=== PATIENT | female | born 1950 | race Caucasian/White ===

== ENCOUNTER 2024-01-16 14:32 | Emergency (ER) | payer OTHER, SELFPAY ==
[2024-01-16 14:35] VITALS: BP 154/88
[2024-01-16] MEDS: SOLU-CORTEF 200 MG IV (16:21)
[2024-01-16] MEDS: BENADRYL 50 MG IV (16:21)
[2024-01-16 16:39] LABS: % Basophils 0.4 % (0-2); % Eosinophils 1.9 % (0-6); % Immature Granulocytes 0.3 % (0-0.5); % Lymphocytes 18.4 % (20.5-51.1); % Monocytes 7.5 % (1.7-9.3); % Neutrophils 71.5 % (42.2-75.2); Absolute Eosinophils 0.1 10^3/uL (0-0.7); Absolute Lymphocytes 1.4 10^3/uL (1.2-3.4); Absolute Monocytes 0.6 10^3/uL (0.1-0.6); Absolute Neutrophils 5.2 10^3/uL (1.4-6.5); Hematocrit 44.4 % (37.0-47.0); Hemoglobin 14.7 g/dL (12.0-16.0); Mean Corp Hgb Conc. 33.1 g/dL (33.0-37.0); Mean Corpuscular Hgb 29.8 pg (27.0-31.0); Mean Corpuscular Volume 89.9 fL (81.0-99.0); Nucleated Red Blood Cells % 0 %; Platelet Count 277 10^3/uL (130-400); Red Blood Cell Count 4.94 10^6/uL (4.20-5.40); Red Cell Dist. Width 14.4 % (11.5-14.5); White Blood Cell Count 7.3 10^3/uL (4.8-10.8)
[2024-01-16 16:56] LABS: ALT (SGPT) 46 U/L (0-35); AST (SGOT) 57 U/L (14-36); Albumin 4.3 g/dl (3.5-5.0); Alkaline Phosphatase 269 U/L (38-126); Blood Urea Nitrogen 16 mg/dl (7-17); Carbon Dioxide 36 mmol/L (22-30); Chloride 99 mmol/L (98-107); Glucose 101 mg/dl (70-99); Potassium 5.6 mmol/L (3.5-5.1); Sodium 143 mmol/L (135-145); Total Bilirubin 1.1 mg/dl (0.2-1.3); Total Protein 6.9 g/dl (6.3-8.2); eGFR > 60.00
--- NOTE | 2024-01-16 17:21 | ED.GENMED ---
History of Present Illness
General
Chief Complaint: Headache
Source: patient
Exam Limitations: none
Time Seen by Provider: 01/16/24 15:30
Nursing documentation reviewed up to this point in time: agreed with
History of Present Illness
History of Present Illness:
pt is a 73 y/o F with h/o COPD, GERD, HTN HKLD, migraines
has had intermittent dizziness/lightheadedness with headache for th epast few mo
much wrose the past month
she spends a lot of days in bed
she ended up seeing pcp --> ENT who didn't think she had vertigo; pt was having headache and nauesa so he prescriped sumatriptan which didn't really help for headaches; he wanted her to have MRI of head, which she didn't get yet; continued to have
sxs of nausea and had labs showing transamintiis so she sw GI --> who ordered US showing a 'spot' on her liver and then pt has CT of a/p showing this spot of her liver but without other findings, she had her lfts improve and is scheduled to have
outpatient biopsy
but in the meantime she has never ahd the MRI of her head
the past 4 days she has had headache that was very intense, not letting up and she had nausea and was lying in bed
she took aleve yesterday and ultimately today the headache is better but she still has mild bitemporal headache 4/10 as well as this episodic dizziness that feels like a wave come over her
she mostly does not have any trouble with balance and walks unassisted. It does seem like her dizziness gets worse with changing positions but is not a room spinning sensation. She has chronic vision problems because of cataract surgery and has
not noticed any changes to that. She has no scalp sensitivity or fatigue with chewing. She is not having any thunderclap headache
Past History
Past History
ED Past Medical History: Cancer (Cervical), COPD, HTN, Hypercholesterolemia, Other (PE) and Other (UTI)
Social History
Tobacco: Non-smoker
Review of Systems
Review of Systems
Allergies reviewed?: Yes
All Other Systems: Not applicable
Phy Exam
Physical Exam
Physical Exam:
GENERAL: Alert , in no apparent distress
HEAD: NCAT
EYE: pupils equal and reactive, no nystagmus, minimal photophobia
NECK: Supple,full rom, nontender
ENT: o/p clr, mmm.
CARDIAC: Regular rate and rhythm . no edema
LUNGS: Clear breath sounds bilaterally, no acute respiratory distress, no wheezes/rales/rhonchi
ABDOMEN: Soft, without focal tenderness, no r/g, no cvat
NEUROLOGICAL: Alert and orientedx 4, cn intact, no facial asymmetry, 5/5 strength in UE/LE, sensation intact, romberg neg, ambulates without assistance, neg pronator drift
SKIN: Warm and dry, skin intact.
MUSCULOSKELETAL: No edema, well perfused.
PSYCH: Normal and appropriate interaction.
Course
Orders/Labs/Results
Orders:
Orders
01/16/24 15:59
Electrocardiogram (*1) Stat
Reason for Study: Other
Other Reason for Exam: Headache
CT Head & Neck Angio W/wo IV Urgent
Comment:
Reason For Exam: dizziness and headache x 1 mo
EKG- Treatment ONCE
01/16/24 16:02
Diphenhydramine [Benadryl] 50 mg IV NOW STA
Hydrocortisone Sod Succinate [Solu-Cortef] 200 mg IV NOW STA
01/16/24 16:20
Complete Blood Count/With Diff Urgent
Comprehensive Metabolic Panel Urgent
Erythrocyte Sed Rate Urgent
Comment: ADD ON
01/16/24 16:50
Add On- LAB Urgent
Tests Added?: ESR
Abnormal Lab Results
01/16/24
16:20
Lymphocytes % 18.4 L %
(20.5-51.1)
Potassium 5.6 H mmol/L
(3.5-5.1)
Carbon Dioxide 36 H mmol/L
(22-30)
Creatinine 0.5 L mg/dL
(0.6-1.0)
Glucose 101 H mg/dl
(70-99)
AST 57 H U/L
(14-36)
ALT 46 H U/L
(0-35)
Alkaline Phosphatase 269 H U/L
(38-126)
01/16/24 16:20
01/16/24 16:20
Vital Signs
Initial and Last Documented VS:
Initial Vital Signs
Temp Pulse Resp BP Pulse Ox
98.2 F 68 16 154/88 98
01/16/24 14:35 01/16/24 14:35 01/16/24 14:35 01/16/24 14:35 01/16/24 14:35
Last Documented Vital Signs
Temp Pulse Resp BP Pulse Ox
97.7 F 69 22 145/70 94
01/16/24 18:48 01/16/24 18:48 01/16/24 18:48 01/16/24 18:48 01/16/24 18:48
MDM/Problems Addressed
Differential Diagnosis Includes:
dissection, cva, tumor, stroke, migraine, vertigo, depression
MDM/Problems Addressed:
73 y/o F
weeks of headaches, dizziness, felt as lightheadedness, comes and goes
waxing and waning symptoms
had some other issues being worked up --> LFTs elevated and what is concerning for liver mets on us and CT recently
due to have liver bx
has not had issues walking
has trouble with participating in activities because of headaches
today's headache not severe
no fever, neck tiffness, confusion, weakness, numbness, neck pain, syncope, cp, sob
on exam pt is nontoxic appearing
no distress
no focal neuro deficits
cta head/neck - neg
labs show mild hyperkalemia no ekg changes
sed rate normal
pt is frustrated because she doesn't feel that her sypmtoms are being addressed so i spoke with her PCP dr. chapin who now is more aware of th eheadaches, he says that she has not followed up to update him that she is still having the headaches
she happens to have appt next week and he will address
*Critical Care Note
Total Time (30-74mins, 75-104mins- exclusive of procedures): Not Applicable
ED Attending Note
-
Portions of this chart may have been created with voice recognition software.� Occasional wrong word or��sound alike� substitutions may have occurred due to the inherent limitations of voice recognition software.
Discharge Plan
Departure
Patient Disposition: Home (Routine Discharge)
Date of Disposition: 01/16/24
Time of Disposition: 19:15
Patient with high blood pressure during this ER visit?: Yes
Condition: Fair
Covid-19: Not Applicable
Discharge Problem:
Headache
Instructions: Headache, Adult (DC)
Referrals:
Godfrey Chapin MD [Family Provider] - Follow up in 5-7 days
Activity Restrictions/Additional Instructions:
Your CAT scan shows no findings concerning to cause your symptoms today. I spoke with your primary care doctor who will readdress all of these issues and he is aware of my findings today. You can take Tylenol or maybe even 1 dose of ibuprofen a
day as needed for headaches. Ibuprofen once a day as needed for headaches. Drink fluids. Eat a well-balanced diet.
You do need to have this liver issue worked up to evaluate for possibility of malignancy but in the meantime it is very important that you see your doctor next week as planned and tell them all about the headaches. Return to the ER for any concern
Interventions
Interventions:
*Risk Screen - Suicide Last Done: 01/16/24 16:47
*General Assessment Last Done: 01/16/24 16:47
*Neglect/Abuse Screening Last Done: 01/16/24 16:47
ED- Fall Risk Assessment Last Done: 01/16/24 16:47
*ED COVID-19 Vaccine History Last Done: 01/16/24 16:47
ED- Neurological Assessment Last Done: 01/16/24 16:47
Discharge Date and Time
Print Language: AUSTRIAN
[2024-01-16 17:35] LABS: Erythrocyte Sed Rate 19 mm/hour (0-20)
[2024-01-16 18:48] VITALS: BP 145/70
[2024-01-16 19:50] VITALS: BP 142/65
== END 2024-01-16 20:06 | disposition home or self-care (01) ==
LOC: EMR 14:32
PROVIDERS: Physician Assistant; EMERGENCY PHYSICIAN Emergency Medicine; FAMILY PHYSICIAN Family Medicine
DX: R51.9 Headache, unspecified (principal); J44.9 Chronic obstructive pulmonary disease, unspecified; K21.9 Gastro-esophageal reflux disease without esophagitis; I10 Essential (primary) hypertension; E78.00 Pure hypercholesterolemia, unspecified; Z87.440 Personal history of urinary (tract) infections
CPT/HCPCS: 99284; 96374; 96375; 70496; 70498; 80053; 85025; 85652; 93005; Q9967

== ENCOUNTER → 2025-02-24 09:44 | Outpatient (REF) | payer OTHER, SELFPAY ==
[2025-02-24 11:17] LABS: Hematocrit 42.2 % (37.0-47.0); Hemoglobin 13.8 g/dL (12.0-16.0); Mean Corp Hgb Conc. 32.7 g/dL (33.0-37.0); Mean Corpuscular Volume 91.3 fL (81.0-99.0); Platelet Count 230 10^3/uL (130-400); Red Cell Dist. Width 17.2 % (11.5-14.5)
[2025-02-24 11:45] LABS: ALT (SGPT) 51 U/L (0-35); AST (SGOT) 71 U/L (14-36); Albumin 3.0 g/dl (3.5-5.0); Alkaline Phosphatase 396 U/L (38-126); Blood Urea Nitrogen 6 mg/dl (7-17); Calcium 7.4 mg/dl (8.4-10.2); Carbon Dioxide 33 mmol/L (22-30); Chloride 98 mmol/L (98-107); Glucose 70 mg/dl (70-99); Magnesium 1.3 mg/dl (1.6-2.3); Potassium 2.8 mmol/L (3.5-5.1); Sodium 134 mmol/L (135-145); Total Protein 6.3 g/dl (6.3-8.2); eGFR > 60.00
== END ==
LOC: OLABWHC 09:44
PROVIDERS: ATTENDING PHYSICIAN Family Medicine
DX: I10 Essential (primary) hypertension (principal); G93.41 Metabolic encephalopathy
CPT/HCPCS: 36415; 80053; 83735; 85027

== ENCOUNTER → 2025-02-27 10:35 | Outpatient (REF) | payer OTHER, SELFPAY ==
[2025-02-27 11:33] LABS: Blood Urea Nitrogen 7 mg/dl (7-17); Calcium 7.9 mg/dl (8.4-10.2); Carbon Dioxide 33 mmol/L (22-30); Chloride 102 mmol/L (98-107); Glucose 78 mg/dl (70-99); Potassium 4.3 mmol/L (3.5-5.1); Sodium 136 mmol/L (135-145); eGFR > 60.00
== END ==
LOC: OLABWHC 10:35
PROVIDERS: ATTENDING PHYSICIAN Family Medicine
DX: G93.41 Metabolic encephalopathy (principal); I10 Essential (primary) hypertension; N17.9 Acute kidney failure, unspecified
CPT/HCPCS: 36415; 80048

== ENCOUNTER 2025-02-27 10:57 | Emergency (ER) | payer OTHER, SELFPAY ==
[2025-02-27 11:00] VITALS: BP 128/83
[2025-02-27 11:10] VITALS: BMI 36.4
[2025-02-27] MEDS: LIDOCAINE 4% PATCH 1 PATCH TOPICAL (11:49)
[2025-02-27 12:00] VITALS: BP 101/52
--- NOTE | 2025-02-27 12:06 | ED.MUSCINJ ---
HPI-Injury
General
Chief Complaint: Fall
Time Seen by Provider: 02/27/25 11:17
Nursing documentation reviewed up to this point in time: agreed with
History of Present Illness-Injury
Initial Injury comments:
74-year-old female presents the ER for evaluation of left hip and upper back discomfort after she fell this morning. Patient was trying to get herself ready to go to her outpatient PET scan. She states that her left foot caught on the ground
causing her to fall. She has been utilizing a walker, is currently in rehab. Her daughter who is present at bedside states that she has been walking well over the past few days and was looking forward to discharge next week. Patient has chronic
dyspnea along with worsening abdominal hernias contributing to her worsening dyspnea-she also has cancer and has not been considered a candidate for any additional treatment for her abdominal hernias. Patient states she has been having left hip
pain over the last several weeks after her previous fall, pain is not necessarily dissimilar at current. She also has chronic back discomfort although it is slightly worsened at this time. Patient does believe that she hit her head, no loss of
consciousness. Patient is not on anticoagulants.
Past History
Past History
ED Past Medical History: Cancer (Cervical), COPD, HTN, Hypercholesterolemia, Other (PE) and Other (UTI)
Social History
Tobacco: Non-smoker
Review of Systems
Review of Systems
Allergies reviewed?: Yes
Phy Exam
Physical Exam
Physical Exam:
Patient is awake, alert, appears older than stated age, mild conversational dyspnea, head is NCAT, PERRL, EOMI mucous membranes moist, conjunctiva pink, no midline pain on palpation of cervical spine, mild diffuse paraspinal pain on palpation,
significant thoracic kyphosis noted with mild diffuse pain on palpation of the upper thoracic spine, no crepitus, no step-offs, heart regular rate and rhythm without murmurs or ectopy, lungs are clear to auscultation without wheezes rales or
rhonchi, no JVD, abdomen is soft, obese, with asymmetric swelling on the right side in comparison to left side and nontender on palpation, extremities with trace edema symmetric to bilateral thighs, pelvis is stable to rock, mild pain on palpation
of left hip although patient has full active range of motion of the left hip without difficulty, patient has limited active range of motion of the right hip (patient and daughter present at bedside report that this is typical limitation due to her
abdominal anatomy), GCS is 15, dressings present on left knee and mid abdomen
Injury Course
Orders/Labs/Results
Orders:
Orders
02/27/25 11:37
Lidocaine [Lidocaine 4% Patch] 1 patch TOPICAL ONCE ONE
Apply Lidocaine patch(s) to:: upper back
02/27/25 11:38
CT Thoracic Spine W/o Iv Contr Urgent
Comment:
Reason For Exam: trauma
02/27/25 11:40
CT Cervical Spine W/o Iv Contr Urgent
Comment:
Reason For Exam: trauma
CT Head W/o Iv Contrast Urgent
Comment:
Reason For Exam: trauma
Cardiac Monitoring- Treatment ONCE
02/27/25 13:34
Oxycodone [Roxicodone] 5 mg PO NOW STA
MDM/Problems Addressed
Differential Diagnosis Includes:
Differential diagnosis to consider but not limited to occult intracranial hemorrhage, occult cervical spine fracture, thoracic spine fracture, contusion, strain, hip fracture along with other etiologies consider
Chronic conditions affecting care:
COPD, malignancy, chronic pain
*Radiology
Radiology exam reviewed: radiology read reviewed ([facility] without acute finding. CTC spine/Tspine: There are multiple thoracic spine fractures as described above. Evidence of previous vertebroplasty involving T9 and L1. Small bilateral pleural
effusions with adjacent compressive atelectasis)
*Pulse Oximetry
SaO2: 96
Oxygen Mode of Delivery: Room air
Patient hypoxic: no
*Critical Care Note
Total Time (30-74mins, 75-104mins- exclusive of procedures): Not Applicable
Update Note
Update Note:
I reviewed medication list from her rehab facility present at bedside-patient is on MS Contin for her pain at current. Will add lidocaine patch and obtain CT imaging for further evaluation of injury due to today's fall. Patient and daughter
present at bedside agree with plan at current.
1350: I reviewed CT results with patient and [id number] present at bedside. CT showing new compression at T3 and T5 compared to prior study from 2023. Patient had some improvement with lidocaine patch applied. 5 mg oxycodone added. I
discussed with them plan for return back to the rehab facility for continued care. They are in agreement with this plan. Will trial ambulation and if able to ambulate will discharge. They have no additional questions at the current time.
Patient was able to ambulate utilizing a walker as is her baseline. Will plan for discharge.
ED Attending Note
-
Portions of this chart may have been created with voice recognition software.� Occasional wrong word or��sound alike� substitutions may have occurred due to the inherent limitations of voice recognition software.
Discharge Plan
Departure
Patient Disposition: Home (Routine Discharge)
Date of Disposition: 02/27/25
Time of Disposition: 14:17
Patient with high blood pressure during this ER visit?: No
Discharge Problem:
Compression fx, thoracic spine
Instructions: Vertebral Compression Fracture ED
Referrals:
Francois Womack, DO [Non-Admitting Privileges, Orthopedics] - Follow up in 10 days
UNKNOWN - PT DOES,NOT KNOW [Family Provider]
Activity Restrictions/Additional Instructions:
Please follow-up with your primary physician at your rehab facility to discuss further pain management strategy given your long-term use of MS Contin. Return to the ER for any concerns. Please follow-up with curriculum specialist for reevaluation and
further care.
Interventions
Interventions:
*Risk Screen - Suicide Last Done: 02/27/25 11:09
*General Assessment Last Done: 02/27/25 11:09
*Neglect/Abuse Screening Last Done: 02/27/25 11:09
*ED COVID-19 Vaccine History Last Done: 02/27/25 11:09
*ED Influenza Vaccine History Last Done: 02/27/25 11:09
ED-Musculoskeletal Assessment Last Done: 02/27/25 11:07
ED- Neurological Assessment Last Done: 02/27/25 11:06
ED-Skin Assessment Last Done: 02/27/25 11:08
Discharge Date and Time
Print Language: EMIRATI
[2025-02-27] MEDS: ROXICODONE 5 MG PO (13:39)
== END 2025-02-27 17:24 | disposition home or self-care (01) ==
LOC: EMR 10:57
PROVIDERS: EMERGENCY PHYSICIAN Emergency Medicine
DX: M48.54XA Collapsed vertebra, not elsewhere classified, thoracic region, initial encounter for fracture (principal); J44.9 Chronic obstructive pulmonary disease, unspecified; I10 Essential (primary) hypertension; E78.00 Pure hypercholesterolemia, unspecified; I25.10 Atherosclerotic heart disease of native coronary artery without angina pectoris; W19.XXXA Unspecified fall, initial encounter; Z87.440 Personal history of urinary (tract) infections
CPT/HCPCS: 99284; 70450; 72125; 72128

== ENCOUNTER → 2025-03-06 11:17 | Outpatient (REF) | payer OTHER, SELFPAY ==
[2025-03-06 12:00] LABS: Urine Character Clear (Clear)
[2025-03-06 14:06] LABS: Urine Squamous Cell 16-20 /LPF (Few)
[2025-03-06 14:07] LABS: Urine White Cell >100 /HPF (0-5)
== END ==
LOC: OLABWHC 11:17
PROVIDERS: ATTENDING PHYSICIAN Family Medicine
DX: G93.41 Metabolic encephalopathy (principal); N17.9 Acute kidney failure, unspecified; S31.109D Unspecified open wound of abdominal wall, unspecified quadrant without penetration into peritoneal cavity, subsequent encounter; Z79.899 Other long term (current) drug therapy
CPT/HCPCS: 81003; 81015; 87077; 87086; 87186

== ENCOUNTER → 2025-03-12 10:45 | Outpatient (REF) | payer OTHER, SELFPAY ==
[2025-03-12 12:28] LABS: Hematocrit 41.2 % (37.0-47.0); Hemoglobin 13.0 g/dL (12.0-16.0); Mean Corp Hgb Conc. 31.6 g/dL (33.0-37.0); Mean Corpuscular Volume 97.6 fL (81.0-99.0); Nucleated Red Blood Cells % 0 %; Platelet Count 184 10^3/uL (130-400); Red Cell Dist. Width 18.3 % (11.5-14.5)
[2025-03-12 13:41] LABS: ALT (SGPT) 23 U/L (0-35); AST (SGOT) 43 U/L (14-36); Albumin 2.7 g/dl (3.5-5.0); Alkaline Phosphatase 280 U/L (38-126); Blood Urea Nitrogen 15 mg/dl (7-17); Calcium 8.5 mg/dl (8.4-10.2); Carbon Dioxide 29 mmol/L (22-30); Chloride 100 mmol/L (98-107); Glucose 79 mg/dl (70-99); Magnesium 1.5 mg/dl (1.6-2.3); Potassium 4.1 mmol/L (3.5-5.1); Sodium 134 mmol/L (135-145); Total Protein 5.7 g/dl (6.3-8.2); eGFR > 60.00
== END ==
LOC: OLABWHC 10:45
PROVIDERS: ATTENDING PHYSICIAN Family Medicine
DX: G93.41 Metabolic encephalopathy (principal); C53.9 Malignant neoplasm of cervix uteri, unspecified; S22.000D Wedge compression fracture of unspecified thoracic vertebra, subsequent encounter for fracture with routine healing; S31.109D Unspecified open wound of abdominal wall, unspecified quadrant without penetration into peritoneal cavity, subsequent encounter
CPT/HCPCS: 36415; 80053; 83735; 85025

== ENCOUNTER → 2025-03-17 10:51 | Outpatient (REF) | payer OTHER, SELFPAY ==
[2025-03-17 12:04] LABS: Hematocrit 44.0 % (37.0-47.0); Hemoglobin 14.5 g/dL (12.0-16.0); Mean Corp Hgb Conc. 33.0 g/dL (33.0-37.0); Mean Corpuscular Volume 93.0 fL (81.0-99.0); Platelet Count 155 10^3/uL (130-400); Red Cell Dist. Width 18.6 % (11.5-14.5)
[2025-03-17 12:09] LABS: ALT (SGPT) 28 U/L (0-35); AST (SGOT) 70 U/L (14-36); Albumin 2.9 g/dl (3.5-5.0); Alkaline Phosphatase 394 U/L (38-126); Blood Urea Nitrogen 13 mg/dl (7-17); Calcium 8.9 mg/dl (8.4-10.2); Carbon Dioxide 30 mmol/L (22-30); Chloride 99 mmol/L (98-107); Glucose 67 mg/dl (70-99); Potassium 4.0 mmol/L (3.5-5.1); Sodium 132 mmol/L (135-145); Total Protein 6.3 g/dl (6.3-8.2); eGFR > 60.00
== END ==
LOC: OLABWHC 10:51
PROVIDERS: ATTENDING PHYSICIAN Family Medicine
DX: G93.41 Metabolic encephalopathy (principal); F41.9 Anxiety disorder, unspecified
CPT/HCPCS: 36415; 80053; 85027